=== PATIENT | female | born 1955 | race Caucasian/White ===

== ENCOUNTER → 2019-03-14 | Outpatient (CLI) | payer MEDICARE ==
--- NOTE | 2019-03-14 15:25 | RAD ---
EXAM DESCRIPTION: Ankle,Right 2 Views (accession [id number]), Foot,Right 2 Views (accession [id number]) CLINICAL HISTORY: 63 years Female, PN IN RIGHT ANKLE AND JOINTS OF RIGHT FOOT COMPARISON: None. Findings: Right ankle: Deformity of the distal tibia, likely due to remote trauma. There is no acute fracture identified. Midfoot/hindfoot osteoarthritis. Calcaneal enthesophytes. The talar dome is unremarkable. Soft tissue swelling is present. Right foot: Evaluation limited by positioning. Midfoot and hindfoot osteoarthritis. Scattered MTP and IP joint space narrowing. Suspect prior healed fractures of the third and fourth metatarsal bases. There is no definitive acute fracture identified. Soft tissue swelling is present. No dislocation. IMPRESSION: Soft tissue swelling. No acute osseous abnormality is identified. Electronically signed by: Scott Suresh MD 03/14/2019 3:23 PM [facility]
--- NOTE | 2019-03-14 15:25 | RAD ---
EXAM DESCRIPTION: Ankle,Right 2 Views (accession [id number]), Foot,Right 2 Views (accession [id number]) CLINICAL HISTORY: 63 years Female, PN IN RIGHT ANKLE AND JOINTS OF RIGHT FOOT COMPARISON: None. Findings: Right ankle: Deformity of the distal tibia, likely due to remote trauma. There is no acute fracture identified. Midfoot/hindfoot osteoarthritis. Calcaneal enthesophytes. The talar dome is unremarkable. Soft tissue swelling is present. Right foot: Evaluation limited by positioning. Midfoot and hindfoot osteoarthritis. Scattered MTP and IP joint space narrowing. Suspect prior healed fractures of the third and fourth metatarsal bases. There is no definitive acute fracture identified. Soft tissue swelling is present. No dislocation. IMPRESSION: Soft tissue swelling. No acute osseous abnormality is identified. Electronically signed by: Scott Suresh MD 03/14/2019 3:23 PM [facility]
== END ==
LOC: LAB.O 14:11
PROVIDERS: ATTEND Nurse Practitioner Family
DX: M25.571 Pain in right ankle and joints of right foot (principal); R60.0 Localized edema; I10 Essential (primary) hypertension; E11.9 Type 2 diabetes mellitus without complications

== ENCOUNTER → 2019-05-03 | Outpatient (CLI) | payer MEDICARE ==
--- NOTE | 2019-05-03 16:15 | RAD ---
EXAM DESCRIPTION: Chest,2 Views CLINICAL HISTORY: WHEEZING COMPARISON: Previous chest x-ray August 19, 2011 TECHNIQUE: PA/lateral FINDINGS: Port-A-Cath is present with tip in the mid to lower superior vena cava. Heart size is normal with mildly prominent pulmonary vascularity. No pleural effusion or pneumothorax. Patchy density over the lower T-spine on lateral view could be infiltrate in the lung or spurring in the spine or both. Frontal view shows patchy partial volume loss or infiltrate in the medial right lung base. Lateral view shows intact sternum and T-spine. IMPRESSION: Patchy infiltrate or partial volume loss in the medial right lung base. Electronically signed by: Brandon Gilman MD 05/03/2019 4:13 PM [facility]
== END ==
LOC: LAB.O 15:27
PROVIDERS: ATTEND Nurse Practitioner Family
DX: R06.2 Wheezing (principal); R91.8 Other nonspecific abnormal finding of lung field